=== PATIENT | female | born 1995 | race Caucasian/White ===

== ENCOUNTER 2023-04-10 12:10 | Emergency (ER) | payer OTHER, SELFPAY ==
[2023-04-10 12:14] VITALS: BP 119/81; PULSE 63; RESP 18; TEMP 36.6; O2SAT 97; BMI 30.1
--- NOTE | 2023-04-10 12:23 | ED.BACK1 ---
HPI - Back Pain/Injury General Chief Complaint: Back Pain/Injury Stated Complaint: BACK PAIN/CRAMPING/FATIGUE Time Seen by Provider: 04/10/23 12:22 Source: patient Mode of arrival: walk-in Limitations: no limitations History of Present Illness HPI Narrative: Patient presents to emergency department complaining of abdominal pain and cramping. Patient states she has a history of ulcerative colitis and last week symptoms have worsened. She has bloody mucousy stools. He states he has pain to her low back. She has diarrhea 6 times today. She feels very weak. She is on Remicade infusion every 8 weeks.Fridays for next effusion. 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 Patient has contacted the has not heard back from them yet. She denies any fever, chills, cough, chest pain, shortness of breath. She denies any vaginal bleeding, or discharge. Related Data Home Medications Medication Instructions Recorded Confirmed alprazolam 0.25 mg tablet 0.25 mg PO .4 TIMES DAILY PRN 04/10/23 04/10/23 anxiety buspirone 5 mg tablet 5 mg PO DAILY 04/10/23 04/10/23 citalopram 20 mg tablet 30 mg PO DAILY 04/10/23 04/10/23 famotidine 20 mg tablet 20 mg PO Q12H 04/10/23 04/10/23 Previous Rx's Medication Instructions Recorded hydrocodone 5 mg-acetaminophen 325 1 tab PO Q6H PRN pain 3 days #10 04/10/23 mg tablet tabs Allergies Allergy/AdvReac Type Severity Reaction Status Date / Time prochlorperazine Allergy Severe Verified 04/10/23 12:19 [From Compazine] promethazine [From Phenergan] Allergy Severe Verified 04/10/23 12:19 NSAIDS (Non-Steroidal Allergy Intermediate Verified 04/10/23 12:19 Anti-Inflamma Sulfa (Sulfonamide Allergy Intermediate Verified 04/10/23 12:19 Antibiotics) Review of Systems ROS Status of ROS 10 or more systems reviewed and unremarkable except as noted in history and below Exam Narrative Exam Narrative: Nurses notes and vital signs reviewed and patient is not hypoxic. General: Nontoxic, Well-appearing and in no apparent distress. Skin: Warm, dry, no pallor noted. No Rash Head: Normocephalic, atraumatic. Neck: Supple, non-tender. Eye: Pupils are equal, round and EOMI. No scleral icterus. Ears, Nose, Mouth, and Throat: TM clear, no posterior oropharynx erythema or nasal mucosal hypertrophy, uvula is mid-line Oral mucosa is moist Cardiovascular: Regular Rate and Rhythm without murmur, gallop or rub. Respiratory: No accessory muscle use or respiratory distress. Lungs are clear to auscultation, no wheezing, rales or rhonchi Chest Wall: no tenderness Back: No midline thoracic or lumbar vertebral tenderness. No CVA tenderness Musculoskeletal: normal ROM, no calf or popliteal tenderness, no lower extremity edema/swelling GI: Abdomen is soft, non-distended. Normal bowel sounds. No masses appreciated. No tenderness to palpation. No rebound, guarding, or rigidity noted. Neurological: A&O x4. No cranial nerve dysfunction observed. No truncal ataxia. Moves all extremities. Sensation intact. Psychiatric: Cooperative and interactive. Normal mood and affect. Constitutional Vital Signs, click to edit/add: Last Vital Signs Temp 97.9 F 04/10/23 12:14 Pulse 63 04/10/23 12:14 Resp 18 04/10/23 12:14 BP 119/81 04/10/23 12:14 Pulse Ox 97 04/10/23 12:14 O2 Del Method Room Air 04/10/23 12:14 Course Vital Signs Vital signs: Vital Signs Temperature 97.9 F 04/10/23 12:14 Pulse Rate 63 04/10/23 12:14 Respiratory Rate 18 04/10/23 12:14 Blood Pressure 119/81 04/10/23 12:14 Pulse Oximetry 97 04/10/23 12:14 Oxygen Delivery Method Room Air 04/10/23 12:14 Temperature 97.9 F 04/10/23 12:14 Pulse Rate 63 04/10/23 12:14 Respiratory Rate 18 04/10/23 12:14 Blood Pressure 119/81 04/10/23 12:14 Pulse Oximetry 97 04/10/23 12:14 Oxygen Delivery Method Room Air 04/10/23 12:14 MDM - Back Pain/Injury MDM Narrative Medical decision making narrative: pt given IV fluids, and analgesics. Symptoms improved. Labs studies were done and are unremarkable. There is no clinical indication for CT scan at this time. Abdominal series does not show any signs of obstruction.Patient was unable to give us a stool sample in the emergency department. She is nontoxic, abdomen is benign and nonsurgical. She'll be given a prescription for [place] to help the pain. At this time the patient is without objective evidence of an acute process requiring hospitalization or inpatient management. The patient has remained hemodynamically stable. No additional indication for emergent studies at this time. I answered all questions. Discussed discharge instructions including standard anticipatory guidance and what should prompt a return to the emergency department, including if they get worse are not getting better or develops any new or concerning symptoms. I've given them specific time frame in which to follow-up, and who to follow-up with. The patient demonstrates understanding. Patient is nontoxic and stable for discharge with outpatient follow-up. This note was created with the assistance of a speech recognition program. Although the intention is to generate documents that actually reflects the content of the visit, no guarantees can be provided that every mistake has been identified and corrected by editing. Medical Records Attestation: I reviewed the patient's medical records. Lab Data Attestation: I reviewed the patient's lab results. Labs: Lab Results 04/10/23 Range/Units 12:25 WBC 7.5 (4.0-11.0) 10^3/uL RBC 4.47 (4.20-5.40) 10^6/uL Hgb 14.1 (12.0-16.0) g/dL Hct 40.9 (36.0-48.0) % MCV 91.5 (81.0-99.0) fL MCH 31.5 (26.7-34.0) pg MCHC 34.5 (29.9-35.2) g/dL RDW 12.2 (11.0-15.0) % Plt Count 403 (150-450) 10^3/uL MPV 9.5 (9.5-13.5) fL Neut % (Auto) 40.6 L (43.0-75.0) % Lymph % (Auto) 47.8 (20.5-60.0) % [place] % (Auto) 7.8 (1.7-12.0) % Eos % (Auto) 3.2 (0.9-7.0) % Baso % (Auto) 0.5 (0.2-2.0) % Neut # (Auto) 3.0 (1.4-6.5) 10^3/uL Lymph # (Auto) 3.6 (1.2-3.8) 10^3/uL [place] # (Auto) 0.6 (0.3-0.8) 10^3/uL Eos # (Auto) 0.2 (0.0-0.7) 10^3/uL Baso # (Auto) 0.0 (0.0-0.1) 10^3/uL Abs Immat Gran (auto) 0.01 (0.00-0.03) 10^3/uL Imm/Tot Granulo (auto) 0.1 (0.0-0.5) % Sodium 141 (136-145) mmol/L Potassium 4.0 (3.5-5.1) mmol/L Chloride 106 (98-107) mmol/L Carbon Dioxide 25.0 (21.0-32.0) mmol/L Anion Gap 14.0 BUN 9.0 (7.0-18.0) mg/dL Creatinine 0.83 (0.55-1.02) mg/dL Est GFR ( Amer) >60 (>=60) Est GFR (Non-Af Amer) >60 (>=60) BUN/Creatinine Ratio 10.8 Glucose 105 (74-106) mg/dL Lactate 1.2 (0.4-2.0) mmol/L Calcium 8.9 (8.5-10.1) mg/dL Magnesium 2.1 (1.8-2.4) mg/dL Total Bilirubin 0.2 (0.2-1.0) mg/dL AST 15 (15-37) U/L ALT 20 (14-59) U/L Alkaline Phosphatase 53 (46-116) U/L Total Protein 7.3 (6.4-8.2) g/dL Albumin 3.6 (3.4-5.0) g/dL Globulin 3.7 g/dL Albumin/Globulin Ratio 1.0 Urine Color Yellow (YELLOW) Urine Clarity Clear (CLEAR) Urine pH 6.5 (5.0-9.0) Ur Specific [place] 1.025 (1.005-1.025) Urine Protein Negative (NEG/TRACE) mg/dL Urine Glucose (UA) Negative (NEGATIVE) mg/dL Urine Ketones Negative (NEGATIVE) mg/dL Urine Occult Blood Negative (NEGATIVE) Urine Nitrite Negative (NEGATIVE) Urine Bilirubin Negative (NEGATIVE) Urine Urobilinogen 0.2 (0.2-1.0) EU/dL Ur Leukocyte Esterase Negative (NEGATIVE) Discharge Plan Discharge Chief Complaint: Back Pain/Injury Clinical Impression: Colitis, Abdominal pain Patient Disposition: Home, Self-Care Time of Disposition Decision: 14:49 Condition: Good Mode of Transportation: Private Vehicle Prescriptions / Home Meds: New hydrocodone-acetaminophen 5-325 mg tablet 1 tab PO Q6H PRN (Reason: pain) 3 Days Qty: 10 0RF No Action alprazolam 0.25 mg tablet 0.25 mg PO .4 TIMES DAILY PRN (Reason: anxiety) buspirone 5 mg tablet 5 mg PO DAILY citalopram 20 mg tablet 30 mg PO DAILY famotidine 20 mg tablet 20 mg PO Q12H Instructions: Abdominal Pain (ED), Colitis (ED) Additional Instructions: collect the stool sample as instructed. 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
[2023-04-10] MEDS: ONDANSETRON PF 4 MG/2 ML VIAL IV (12:51)
[2023-04-10] MEDS: 0.9 % SODIUM CHLORIDE 1,000 ML 999 ML IV (12:51)
[2023-04-10 12:52] LABS: Basophils Percent Auto 0.5 % (0.2-2.0); Eosinophils Absolute Auto 0.2 10^3/uL (0.0-0.7); Eosinophils Percent Auto 3.2 % (0.9-7.0); Hematocrit 40.9 % (36.0-48.0); Hemoglobin 14.1 g/dL (12.0-16.0); Immature Granulocytes Abs Auto 0.01 10^3/uL (0.00-0.03); Immature Granulocytes Pct Auto 0.1 % (0.0-0.5); Lymphocytes Absolute Auto 3.6 10^3/uL (1.2-3.8); Lymphocytes Percent Auto 47.8 % (20.5-60.0); Mean Corpuscular HGB Conc 34.5 g/dL (29.9-35.2); Mean Corpuscular Hemoglobin 31.5 pg (26.7-34.0); Mean Corpuscular Volume 91.5 fL (81.0-99.0); Mean Platelet Volume 9.5 fL (9.5-13.5); Monocytes Absolute Auto 0.6 10^3/uL (0.3-0.8); Monocytes Percent Auto 7.8 % (1.7-12.0); Neutrophils Percent Auto 40.6 % (43.0-75.0); Platelet Count 403 10^3/uL (150-450); Red Blood Count 4.47 10^6/uL (4.20-5.40); Red Cell Distribution Width 12.2 % (11.0-15.0); White Blood Count 7.5 10^3/uL (4.0-11.0)
[2023-04-10 12:53] LABS: Bilirubin Urine NEGATIVE (NEGATIVE); Blood Urine NEGATIVE (NEGATIVE); Clarity Urine CLEAR (CLEAR); Color Urine YELLOW (YELLOW); Glucose Urine UA NEGATIVE (NEGATIVE); Ketones Urine NEGATIVE (NEGATIVE); Leukocyte Esterase Urine NEGATIVE (NEGATIVE); Nitrite Urine NEGATIVE (NEGATIVE); Protein Urine NEGATIVE (NEG/TRACE); Specific Gravity Urine 1.025 (1.005-1.025); Urobilinogen Urine 0.2 EU/dL (0.2-1.0); pH Urine 6.5 (5.0-9.0)
[2023-04-10 13:04] LABS: Urine Microscopic Indicated NO
[2023-04-10 13:06] LABS: Alanine Aminotransferase 20 U/L (14-59); Albumin Level 3.6 g/dL (3.4-5.0); Alkaline Phosphatase 53 U/L (46-116); Aspartate Amino Transferase 15 U/L (15-37); BUN Creatinine Ratio 10.8; Bilirubin Total 0.2 mg/dL (0.2-1.0); Calcium 8.9 mg/dL (8.5-10.1); Chloride 106 mmol/L (98-107); Estimated GFR (African America >60 (>=60); Estimated GFR (Non-African Ame >60 (>=60); Globulin 3.7 g/dL; Glucose 105 mg/dL (74-106); Magnesium 2.1 mg/dL (1.8-2.4); Sodium 141 mmol/L (136-145); Total Protein 7.3 g/dL (6.4-8.2)
[2023-04-10 13:13] LABS: Lactate/Lactic Acid 1.2 mmol/L (0.4-2.0)
--- NOTE | 2023-04-10 13:46 | XR_ITS ---
The [address] [address] Patient Name: BAILEE TERRY MRN: [id number] date: 1995 Sex: F Assigned Patient Location: ER Current Patient Location: ER Accession/Order Number: [id number] Exam Date: 04/10/2023 13:59 Report Date: 04/10/2023 14:32 At the request of: SHERIF BARRIENTOS Procedure: XR acute abdomen series XR acute abdomen series, 04/10/2023 1:59 PM EDT, OH001 INDICATION: abd pain COMPARISON: 03/28/2022 TECHNIQUE: Two views of the abdomen obtained. A single view of the chest. FINDINGS: The cardiomediastinal silhouette is within normal limits. The lungs are clear. There is no evidence of pneumothorax or pleural effusion. There is a moderate amount stool throughout the colon which may indicate constipation. No obstruction or free air is seen. Abdomen there are several punctate calcific densities projected over both kidneys, measuring up to approximately 3 mm diameter suspicious for nephrolithiasis. No free peritoneal air is seen. The osseous and surrounding soft tissue structures appear within normal limits. XR/XR acute abdomen series IMPRESSION: No obstruction or free air is seen. Question constipation. Findings consistent with bilateral nephrolithiasis. Electronically authenticated by: YAO ARCEO Date: 04/10/2023 14:32
== END 2023-04-10 14:58 | disposition home or self-care (01) ==
PROVIDERS: Emergency Provider Emergency Medicine; PCP Physician Assistant
DX: R10.9 Unspecified abdominal pain (principal); K51.90 Ulcerative colitis, unspecified, without complications; Z79.899 Other long term (current) drug therapy
CPT/HCPCS: 36415; 74022; 80053; 81003; 83605; 83735; 85025; 87507; 96374; 99285